=== PATIENT | male | born 1995 | race African-American/Black ===

== ENCOUNTER 2021-06-06 18:01 | Emergency (ER) | payer MEDICAID ==
[~2021-06-06] VITALS: Ht 180.3 cm; Wt 103.0 kg
--- NOTE | 2021-06-06 18:07 | PHYS DOC ---
Adult General HPI HPI Patient is a 25-year-old male, otherwise healthy who presents with a chief complaint of nasal congestion and a feeling of fullness in his ears. States he went to urgent care earlier today and was tested for Covid and the flu that were both negative. States he just feels tired and needs a work note for the next couple days to stay home and rest. Denies any recent travels, traumas, fevers, chest pain, shortness of breath, cough, abdominal pain, nausea, vomiting, diarrhea. Review of Systems Review of Systems Review of systems otherwise unremarkable except noted in HPI Physical Exam Physical Exam Constitutional: Well developed, well nourished, no acute distress, non-toxic appearance. [] HENT: Normocephalic, atraumatic, bilateral external ears normal, oropharynx moist, mild oropharyngeal erythema but no edema. Bilateral tympanic membranes normal, no oral exudates, nasal congestion. [] Eyes: conjunctiva normal, no discharge. [] Neck: Normal range of motion, no tenderness, supple, no stridor. [] Cardiovascular:Heart rate regular rhythm, no murmur [] Lungs & Thorax: Bilateral breath sounds clear to auscultation [] Abdomen: soft, no tenderness, no masses, no pulsatile masses. [] Skin: Warm, dry, no erythema, no rash. [] Neurologic: Alert and oriented X 3, normal motor function, normal sensory function, no focal deficits noted. [] Psychologic: Affect normal, judgement normal, mood normal. [] EKG EKG [] Radiology/Procedures Radiology/Procedures [] Heart Score C/O Chest Pain: No Risk Factors: Risk Factors: DM, Current or recent (<one month) smoker, HTN, HLP, family history of CAD, obesity. Risk Scores: Risk Factors: DM, Current or recent (<one month) smoker, HTN, HLP, family history of CAD, obesity. Course & Med Decision Making Course & Med Decision Making Patient is a 25-year-old male who presents with nasal congestion and a feeling of fullness in his ears, requesting work note Vital signs not concerning. Physical exam noted above. Given ibuprofen and Benadryl. Patient Covid and flu negative per patient her urgent care today and declined retesting for either. Discussed symptomatic management at home. Given a work note. Advised to follow-up on Tuesday with primary care physician to discuss ED visit and set up a follow-up. Gave return precautions to the ED. Patient grateful, verbalized understanding and agreed with plan of discharge. [] Dragon Disclaimer Dragon Disclaimer This electronic medical record was generated, in whole or in part, using a voice recognition dictation system. Departure Departure: Impression: Primary Impression: Viral syndrome Disposition: HOME / SELF CARE / HOMELESS Condition: GOOD Referrals: PCP,NO (PCP) AMAURI SINGH MD Patient Instructions: Viral Syndrome Additional Instructions: Thank you for coming into the emergency department tonight and allowing us to take care of you. Please read the attached information carefully to go back over some of the things we discussed. Please only take 1000 mg of Tylenol 3 times daily. You can also take ibuprofen at 600 mg every 6 hours as needed. You can also use 50 mg of Benadryl every 6 hours as needed as well. You are given a work note at your request. Important you follow-up with your primary care physician on Tuesday to update on ED visit and set up a follow-up. Please come back with new or concerning symptoms as we discussed. ANNIE ZALDIVAR MD Jun 06, 2021 18:07
[2021-06-06 18:14] VITALS: BP 131/76
== END 2021-06-06 18:57 | disposition home or self-care (01) ==
LOC: ER 18:01
DX: B34.9 Viral infection, unspecified (principal); R09.81 Nasal congestion
CPT/HCPCS: 99282-25